=== PATIENT | male | born 1970 | race Caucasian/White ===

== ENCOUNTER 2022-12-30 08:40 | Emergency (ER) | payer MEDICAID ==
[~2022-12-30] VITALS: Ht 170.2 cm; Wt 89.6 kg
[2022-12-30 08:59] VITALS: BP 153/88; PULSE 98; RESP 20; TEMP 98.6; O2SAT 99
[2022-12-30 09:51] LABS: BASOPHILS # (AUTO) 0.1 K/uL (0.00-0.22); BASOPHILS % (AUTO) 0.5 % (0.0-2.0); EOSINOPHILS % (AUTO) 0.1 % (0.0-4.0); HEMATOCRIT 43.2 % (36-52); HEMOGLOBIN 14.5 g/dL (12.0-18.0); LYMPHOCYTES # (AUTO) 1.9 K/uL (2.0-11.5); MEAN CORPUSCULAR HEMOGLOBIN 29 pg (27-31); MEAN CORPUSCULAR HGB CONC 34 g/dL (33-37); MEAN CORPUSCULAR VOLUME 86.3 fL (80-94); MONOCYTES # (AUTO) 0.9 K/uL (0.8-1.0); MONOCYTES % (AUTO) 5.3 % (1.7-9.3); NEUTROPHILS # (AUTO) 14.4 K/uL (1.8-7.7); NEUTROPHILS % (AUTO) 83.1 % (42.2-75.2); PLATELET COUNT (AUTO) 204 K/uL (140-450); RED BLOOD CELL COUNT(AUTO) 5.01 MIL/uL (4.20-6.10); RED CELL DISTRIBUTION WIDTH 14.3 % (11.6-13.7); WHITE BLOOD COUNT (AUTO) 17.4 K/uL (4.8-10.8)
[2022-12-30 09:53] LABS: BILIRUBIN,URINE 1+ (NEGATIVE); BLOOD, URINE 1+ (NEGATIVE); COLOR,URINE YELLOW (YELLOW); LEUKOCYTE ESTERASE ,URINE NEGATIVE (NEGATIVE); NITRITE, URINE NEGATIVE (NEGATIVE); PROTEIN,URINE TRACE (NEGATIVE); UGLUCOSE NEGATIVE (NEGATIVE); UROBILINOGEN,URINE 0.2 EU/dL (0.2 - 1)
[2022-12-30 09:56] LABS: APPEARANCE,URINE CLOUDY (CLEAR)
[2022-12-30 10:07] LABS: ALBUMIN 3.3 g/dL (3.4-5.0); ANION GAP 14.1 (8-16); CALCIUM 8.4 mg/dL (8.5-10.1); CARBON DIOXIDE 24.7 mmol/L (21-32); CREATININE 1.6 mg/dL (0.6-1.3); POTASSIUM 3.8 mmol/L (3.5-5.1); TOTAL BILIRUBIN 0.8 mg/dL (0.0-1.0); TOTAL PROTEIN, SERUM 7.4 g/dL (6.4-8.2)
[2022-12-30 10:07] LABS: BACTERIA,URINE FEW /HPF (None Seen); ICTOTEST NEGATIVE (NEGATIVE); SQUAMOUS EPITHELIAL CELL,UR 0-3 (FEW) /LPF (0-3 (FEW)); WBC,URINE 0-5 /HPF (0-5)
[2022-12-30] MEDS ORDERED: PIPERACILLIN/TAZOBACTAM 3.375 GM VIAL IV ONE (10:41)
[2022-12-30] MEDS: NACL 0.9% 1,000 ML IV ONE (10:52)
[2022-12-30] MEDS: MORPHINE SULFATE 4 MG/ML SYR IVP ONE (10:56)
[2022-12-30] MEDS: ONDANSETRON 4 MG/2 ML VIAL IVP ONE (11:04)
[2022-12-30] MEDS: PIPERACILLIN/TAZOBACTAM 3.375 GM in DEXTROSE 5% 50 ML IV ONE (11:05)
[2022-12-30 11:25] LABS: INR 0.95 (0.8-1.2); PARTIAL THROMBOPLASTIN TIME 28.5 secs (22-35.6)
[2022-12-30 11:34] LABS: LACTIC ACID 0.5 mmol/L (0.4-2.0)
[2022-12-30 12:11] VITALS: O2SAT 99
[2022-12-30] MEDS: HYDROmorphone PFS 2 MG/ML SYR IVP ONE (14:02)
[2022-12-30] MEDS: metroNIDAZOLE 500 MG/NS PREMIX 100 ML IV ONE (14:02)
[2022-12-30] MEDS: NACL 0.9% 1,000 ML IV SCH (14:03)
[2022-12-30 14:26] VITALS: O2SAT 99
[2022-12-30 15:55] VITALS: BP 113/73; PULSE 80; RESP 22; TEMP 97.5; O2SAT 94
== END 2022-12-30 16:05 | disposition short-term general hospital (02) ==
LOC: MED 08:40
DX: K57.92 Diverticulitis of intestine, part unspecified, without perforation or abscess without bleeding (principal); A41.9 Sepsis, unspecified organism; N17.9 Acute kidney failure, unspecified
CPT/HCPCS: 36415; 74176; 80053; 81001; 83605; 83690; 85025; 85610; 85730; 86886; 86900; 86901; 87040; 96365; 96368; 96375; 99291; J1170; J2270; J2405; J2543; J3490

== ENCOUNTER 2023-02-13 23:20 | Emergency (ER) | payer MEDICAID ==
[~2023-02-13] VITALS: Ht 170.2 cm; Wt 81.6 kg
[2023-02-13 23:39] VITALS: BP 141/82; PULSE 84; RESP 17; TEMP 97; O2SAT 95
[2023-02-14 00:02] VITALS: BP 141/82; PULSE 75; RESP 17; TEMP 97
[2023-02-14 00:18] VITALS: O2SAT 95
[2023-02-14 00:20] LABS: APPEARANCE,URINE CLEAR (CLEAR); BILIRUBIN,URINE NEGATIVE (NEGATIVE); BLOOD, URINE TRACE-I (NEGATIVE); COLOR,URINE YELLOW (YELLOW); LEUKOCYTE ESTERASE ,URINE NEGATIVE (NEGATIVE); NITRITE, URINE NEGATIVE (NEGATIVE); PROTEIN,URINE NEGATIVE (NEGATIVE); UGLUCOSE NEGATIVE (NEGATIVE); UROBILINOGEN,URINE 0.2 EU/dL (0.2 - 1)
[2023-02-14 00:22] LABS: BASOPHILS # (AUTO) 0.1 K/uL (0.00-0.22); BASOPHILS % (AUTO) 0.8 % (0.0-2.0); EOSINOPHILS # (AUTO) 0.2 K/uL (0-0.4); EOSINOPHILS % (AUTO) 1.5 % (0.0-4.0); HEMATOCRIT 43.9 % (36-52); HEMOGLOBIN 14.4 g/dL (12.0-18.0); LYMPHOCYTES # (AUTO) 5.8 K/uL (2.0-11.5); LYMPHOCYTES % (AUTO) 45.6 % (20.5-51.1); MEAN CORPUSCULAR HEMOGLOBIN 28 pg (27-31); MEAN CORPUSCULAR HGB CONC 33 g/dL (33-37); MEAN CORPUSCULAR VOLUME 86.2 fL (80-94); MONOCYTES # (AUTO) 0.8 K/uL (0.8-1.0); MONOCYTES % (AUTO) 6.2 % (1.7-9.3); NEUTROPHILS # (AUTO) 5.8 K/uL (1.8-7.7); NEUTROPHILS % (AUTO) 45.9 % (42.2-75.2); PLATELET COUNT (AUTO) 242 K/uL (140-450); RED BLOOD CELL COUNT(AUTO) 5.09 MIL/uL (4.20-6.10); RED CELL DISTRIBUTION WIDTH 15.3 % (11.6-13.7); WHITE BLOOD COUNT (AUTO) 12.6 K/uL (4.8-10.8)
[2023-02-14 00:26] LABS: BACTERIA,URINE FEW /HPF (None Seen); MUCUS,URINE None Seen /LPF (None Seen); SQUAMOUS EPITHELIAL CELL,UR 0-3 (FEW) /LPF (0-3 (FEW)); WBC,URINE 0-5 /HPF (0-5)
[2023-02-14 00:44] LABS: ALBUMIN 3.3 g/dL (3.4-5.0); CALCIUM 8.8 mg/dL (8.5-10.1); CARBON DIOXIDE 26.9 mmol/L (21-32); CREATININE 1.4 mg/dL (0.6-1.3); POTASSIUM 3.9 mmol/L (3.5-5.1); TOTAL BILIRUBIN 0.3 mg/dL (0.0-1.0); TOTAL PROTEIN, SERUM 7.1 g/dL (6.4-8.2)
== END 2023-02-14 00:50 | disposition left against medical advice (07) ==
LOC: MED 23:20
DX: R10.9 Unspecified abdominal pain (principal); R11.2 Nausea with vomiting, unspecified; Z53.21 Procedure and treatment not carried out due to patient leaving prior to being seen by health care provider
CPT/HCPCS: 36415; 80053; 81001; 85025; 99281